=== PATIENT | female | born 1960 | race Caucasian/White ===

== ENCOUNTER 2022-04-18 17:57 | Emergency (ER) | payer OTHER ==
[~2022-04-18] VITALS: Ht 152.4 cm; Wt 61.2 kg
--- NOTE | 2022-04-18 18:55 | NUR ---
TO ER BED 3. BIB RA 889,GLF WHILE USING A TREADMILL,LEFT ARM AND THIGH PAIN. AWAITING MD HAN.
[2022-04-18] MEDS ORDERED: IBUP-1957 PO (19:32)
--- NOTE | 2022-04-18 20:00 | NUR ---
Patient discharged to home in stable condition. Written and verbal after care instructions given. Patient verbalizes understanding of instruction.
[2022-04-18 20:11] VITALS: BP 142/88
== END 2022-04-18 20:12 | disposition home or self-care (01) ==
LOC: ER 18:00
DX: S76.312A Strain of muscle, fascia and tendon of the posterior muscle group at thigh level, left thigh, initial encounter (principal); S40.012A Contusion of left shoulder, initial encounter; Z90.12 Acquired absence of left breast and nipple; W18.30XA Fall on same level, unspecified, initial encounter; Y93.89 Activity, other specified; Y92.89 Other specified places as the place of occurrence of the external cause; Y99.8 Other external cause status